=== PATIENT | female | born 1955 | race Caucasian/White ===

== ENCOUNTER → 2016-10-29 | Outpatient (CLI) | payer MEDICAID | END | disposition home or self-care (01) | LOC: CFH 13:07 | PROVIDERS: ATTEND Nurse Practitioner Gerontology | DX: Z12.31 Encounter for screening mammogram for malignant neoplasm of breast (principal); N63 Unspecified lump in breast; R92.0 Mammographic microcalcification found on diagnostic imaging of breast | CPT/HCPCS: G0202 ==

== ENCOUNTER → 2016-11-07 | Outpatient (CLI) | payer MEDICAID | END | disposition home or self-care (01) | LOC: CFH 12:50 | PROVIDERS: ATTEND Nurse Practitioner Gerontology | DX: Z02.9 Encounter for administrative examinations, unspecified (principal) ==

== ENCOUNTER 2017-03-02 16:17 | Inpatient (IN) | payer MEDICAID ==
[~2017-03-02] VITALS: Ht 170.2 cm; Wt 68.1 kg
[2017-03-02] MEDS ORDERED: ONDANSETRON 2MG/ML, 2ML IVPush ONE (17:00)
[2017-03-02] MEDS ORDERED: SODIUM CHLORIDE FLUSH 10ML SYR IVF ONE (17:00)
[2017-03-02] MEDS ORDERED: SODIUM CHLORIDE 0.9% 1,000ML IVBOLUS ONE ×2 (17:00→18:30)
[2017-03-02 17:21] LABS: HEMATOCRIT 56.5 % (34.6-47.8); HEMOGLOBIN 18.6 g/dL (11.7-16.4); WHITE BLOOD COUNT 15.3 x10^3/uL (3.4-10)
[2017-03-02 17:30] LABS: ASPARTATE AMINO TRANSFERASE 12 U/L (15-37); BLOOD UREA NITROGEN 33 mg/dL (7-18)
[2017-03-02] MEDS ORDERED: METF500T4 PO (18:07)
[2017-03-02] MEDS ORDERED: INSULIN REGULAR 100 UNITS/ML, 3ML VIAL ONE (18:24)
[2017-03-02] MEDS ORDERED: INSULIN REGULAR 100 UNITS/ML, 3ML VIAL IVPush ONE ×2 (18:30→19:30)
[2017-03-02] MEDS ORDERED: CANA100T PO (18:33)
[2017-03-02] MEDS ORDERED: SUCR1TAB PO (18:33)
[2017-03-02] MEDS: SODIUM CHLORIDE 0.9% 1,000 ML IV SCH (19:12)
[2017-03-02] MEDS ORDERED: REGULAR INSULIN 62.5 UNITS in SODIUM CHLORIDE 0.9% 249.375 ML IV PRN (19:12)
[2017-03-02 19:18] LABS: ABG COLLECTION SITE LEFT BRACHIAL
[2017-03-02] MEDS: HEPARIN 5,000 UNITS/ML, 1ML SQ SCH (19:30)
[2017-03-02] MEDS ORDERED: SODIUM BICARB 8.4%, 50ML SYRINGE IVPB PRN ×2 (19:30)
[2017-03-02] MEDS ORDERED: ONDANSETRON 2MG/ML, 2ML IVPush PRN (19:30)
[2017-03-02 20:22] LABS: BLOOD UREA NITROGEN 27 mg/dL (7-18)
[2017-03-02 20:23] LABS: PATH.CAST-FLAG NOT PRESENT; SPERM-FLAG NOT PRESENT; SRC-FLAG NOT PRESENT; XTAL-FLAG NOT PRESENT; YLC-FLAG NOT PRESENT
[2017-03-02 20:26] LABS: ASPARTATE AMINO TRANSFERASE 6 U/L (15-37)
[2017-03-02] MEDS ORDERED: DEXTROSE 50%, 50ML SYRINGE ONE (20:39)
[2017-03-02] MEDS ORDERED: LEVOFLOXACIN/PMX 750MG/150ML 150 ML IV SCH (21:00)
[2017-03-02] MEDS ORDERED: DEXTROSE 50%, 50ML SYRINGE IVPush ONE (21:00)
[2017-03-02] MEDS ORDERED: OMNIPAQUE 350 MG/ML, 100ML BOTTLE ONE (21:07)
[2017-03-02] MEDS: METRONIDAZOLE PMX 500MG/100ML 100 ML IV SCH (22:50)
[2017-03-02] MEDS: D5%-0.45% NACL 1,000 ML IV SCH (22:51)
[2017-03-02] MEDS: SODIUM CHLORIDE FLUSH 10ML SYR IVF SCH (22:53)
[2017-03-02] MEDS: DOCUSATE 100 MG CAPSULE PO SCH (22:53)
[2017-03-02] MEDS ORDERED: PANTOPRAZOLE 80 MG in SODIUM CHLORIDE 0.9% 100 ML IV SCH (23:00)
[2017-03-02] MEDS: REGULAR INSULIN 62.5 UNITS in SODIUM CHLORIDE 0.9% 249.375 ML IV PRN (23:12)
[2017-03-03 00:16] LABS: BLOOD UREA NITROGEN 22 mg/dL (7-18)
[2017-03-03] MEDS: SODIUM CHLORIDE 0.9% 1,000 ML IV SCH (01:52)
[2017-03-03] MEDS: HEPARIN 5,000 UNITS/ML, 1ML SQ SCH ×3 (03:30→19:30)
[2017-03-03 03:41] LABS: BLOOD UREA NITROGEN 18 mg/dL (7-18)
[2017-03-03 03:43] LABS: HEMATOCRIT 45.5 % (34.6-47.8); HEMOGLOBIN 15.5 g/dL (11.7-16.4); WHITE BLOOD COUNT 15.1 x10^3/uL (3.4-10)
[2017-03-03] MEDS: D5%-0.45% NACL 1,000 ML IV SCH ×3 (05:39→21:46)
[2017-03-03] MEDS: METRONIDAZOLE PMX 500MG/100ML 100 ML IV SCH (05:40)
[2017-03-03 07:54] LABS: BLOOD UREA NITROGEN 15 mg/dL (7-18)
[2017-03-03] MEDS: DOCUSATE 100 MG CAPSULE PO SCH ×2 (09:00→21:26)
[2017-03-03] MEDS: SODIUM CHLORIDE FLUSH 10ML SYR IVF SCH ×2 (09:00→21:20)
[2017-03-03 12:01] LABS: BLOOD UREA NITROGEN 13 mg/dL (7-18)
[2017-03-03 15:27] LABS: BLOOD UREA NITROGEN 12 mg/dL (7-18)
[2017-03-03] MEDS: SUCRALFATE 1 GM/10 ML UDC PO SCH ×2 (18:07→21:23)
[2017-03-03] MEDS: PANTOPROZOLE 40MG TABLET PO SCH (18:07)
[2017-03-03 20:02] LABS: BLOOD UREA NITROGEN 9 mg/dL (7-18)
[2017-03-03] MEDS: CLARITHROMYCIN 500 MG TABLET PO SCH (21:00)
[2017-03-03] MEDS: AMOXICILLIN 500 MG CAPSULE PO SCH (21:23)
[2017-03-04 00:39] LABS: BLOOD UREA NITROGEN 7 mg/dL (7-18)
[2017-03-04 03:25] LABS: HEMOGLOBIN 12.8 g/dL (11.7-16.4); WHITE BLOOD COUNT 12.1 x10^3/uL (3.4-10)
[2017-03-04] MEDS: REGULAR INSULIN 62.5 UNITS in SODIUM CHLORIDE 0.9% 249.375 ML IV PRN (03:35)
[2017-03-04 03:38] LABS: BLOOD UREA NITROGEN 6 mg/dL (7-18)
[2017-03-04] MEDS: PANTOPROZOLE 40MG TABLET PO SCH ×2 (04:18→16:28)
[2017-03-04] MEDS: HEPARIN 5,000 UNITS/ML, 1ML SQ SCH ×3 (04:18→20:20)
[2017-03-04] MEDS ORDERED: POTASSIUM CHLORIDE 20 MEQ TAB.ER.PRT PO ONE (05:00)
[2017-03-04] MEDS: D5%-0.45% NACL 1,000 ML IV SCH (06:12)
[2017-03-04] MEDS: SUCRALFATE 1 GM/10 ML UDC PO SCH ×4 (07:59→20:22)
[2017-03-04] MEDS: SODIUM CHLORIDE 0.9% 1,000 ML IV SCH ×2 (08:45→16:46)
[2017-03-04] MEDS: CLARITHROMYCIN 500 MG TABLET PO SCH ×2 (09:00→20:21)
[2017-03-04] MEDS: SODIUM CHLORIDE FLUSH 10ML SYR IVF SCH ×2 (09:00→20:21)
[2017-03-04] MEDS: INSULIN DETEMIR 100 UNITS/ML, PEN SQ-INSULIN SCH ×2 (09:19→20:21)
[2017-03-04] MEDS: AMOXICILLIN 500 MG CAPSULE PO SCH ×2 (09:23→20:23)
[2017-03-04] MEDS: DOCUSATE 100 MG CAPSULE PO SCH ×2 (09:24→20:22)
[2017-03-04] MEDS: INSULIN ASPART 100 UNITS/ML, PEN SQ-INSULIN SCH ×3 (11:03→20:23)
[2017-03-04 20:17] VITALS: BP 127/88
[2017-03-05] MEDS: SODIUM CHLORIDE 0.9% 1,000 ML IV SCH ×2 (01:24→08:30)
[2017-03-05 01:26] VITALS: BP 112/68
[2017-03-05] MEDS ORDERED: ACETAMINOPHEN 325 MG TABLET PO PRN (03:00)
[2017-03-05] MEDS: PANTOPROZOLE 40MG TABLET PO SCH (03:39)
[2017-03-05] MEDS: HEPARIN 5,000 UNITS/ML, 1ML SQ SCH ×2 (03:39→11:33)
[2017-03-05] MEDS: INSULIN ASPART 100 UNITS/ML, PEN SQ-INSULIN SCH ×2 (06:53→11:33)
[2017-03-05 07:23] VITALS: BP 137/84
[2017-03-05] MEDS: SUCRALFATE 1 GM/10 ML UDC PO SCH ×2 (07:30→11:33)
[2017-03-05] MEDS ORDERED: POLYETHYLENE GLYCOL 17 GM PACKET PO PRN (08:30)
[2017-03-05] MEDS: CLARITHROMYCIN 500 MG TABLET PO SCH (08:42)
[2017-03-05] MEDS: INSULIN DETEMIR 100 UNITS/ML, PEN SQ-INSULIN SCH (08:42)
[2017-03-05] MEDS: SODIUM CHLORIDE FLUSH 10ML SYR IVF SCH (08:42)
[2017-03-05] MEDS: DOCUSATE 100 MG CAPSULE PO SCH (08:42)
[2017-03-05] MEDS: AMOXICILLIN 500 MG CAPSULE PO SCH (08:42)
[2017-03-05 09:02] LABS: BLOOD UREA NITROGEN 5 mg/dL (7-18)
[2017-03-05] MEDS ORDERED: POTASSIUM CHLORIDE 20 MEQ TAB.ER.PRT PO ONE ×2 (12:30→20:00)
[2017-03-05] MEDS ORDERED: PANT40TA3 PO (13:24)
[2017-03-05] MEDS ORDERED: AMOX-291 PO (13:24)
[2017-03-05] MEDS ORDERED: CLAR500T PO (13:24)
[2017-03-05 13:38] VITALS: BP 129/84
== END 2017-03-05 17:00 | disposition home or self-care (01) | DRG 871 ==
LOC: ED 17:47 → EDIP 18:17 → CCU 21:27 → 4NOR 03-04 16:09 → DCLOUNGE 03-05 14:24
PROVIDERS: ADMIT Surgery; ATTEND Surgery
DX: A41.9 Sepsis, unspecified organism (principal); E11.10 Type 2 diabetes mellitus with ketoacidosis without coma; N17.0 Acute kidney failure with tubular necrosis; B96.81 Helicobacter pylori [H. pylori] as the cause of diseases classified elsewhere; E86.0 Dehydration; K27.9 Peptic ulcer, site unspecified, unspecified as acute or chronic, without hemorrhage or perforation; K29.70 Gastritis, unspecified, without bleeding; Z87.11 Personal history of peptic ulcer disease; N18.2 Chronic kidney disease, stage 2 (mild); Z87.891 Personal history of nicotine dependence
CPT/HCPCS: 36415; 36600; 71010; 74177; 80048; 80053; 81001; 82010; 82803; 82962; 83036; 83605; 83690; 83735; 85025; 86677; 87081; 96361; 96374; 96375; J1644; J1815; J1956; J2405; Q9967; C9113; J7030; J7050